=== PATIENT | female | born 1955 | race Caucasian/White ===

== ENCOUNTER → 2020-03-16 | Outpatient (CLI) | payer OTHER ==
--- NOTE | 2020-03-16 11:17 | Diagnostic Imaging Report ---
EXAM: Right Upper Quadrant Ultrasound INDICATION: ^[id number] ^[id number] ^UPPER ABDOMINAL PAIN COMPARISON: None. TECHNIQUE: Transverse and longitudinal images of the right upper abdomen were obtained. FINDINGS: Liver: Size: 17.9 cm in the right midclavicular line, increased Appearance: Increased echogenicity, smooth contour Mass: No focal masses Gallbladder: Stones/Sludge: None Wall: 0.2 cm Appearance: No wall thickening, pericholecystic fluid or hydrops. Sonographic Crisostomo's Sign: Negative Bile Ducts: Intrahepatic Ducts: No dilatation Extrahepatic Ducts: Common bile duct measures 0.5 cm, no dilatation Pancreas: Visualized portions of the pancreatic head, neck and proximal body are normal. Kidneys: Length: Right 9.9 cm Echogenicity: Normal Collecting System: No hydronephrosis Stone: None Cyst/Mass: None Vessels: Aorta: Visualized portions are normal Inferior Vena Cava: Visualized portions are normal Main Portal Vein: 1.0 cm, normal size with hepatopetal flow. Free Fluid: No ascites or pleural effusion IMPRESSION: Mild hepatomegaly with associated hepatic steatosis. Otherwise, unremarkable right upper quadrant ultrasound. Signed by: Dr. Nichole Gao M.D. on 03/16/2020 11:13 AM
== END ==
LOC: US 09:30
PROVIDERS: ATTEND Internal Medicine
DX: R10.10 Upper abdominal pain, unspecified (principal)
CPT/HCPCS: 76705

== ENCOUNTER 2024-04-15 13:50 | Emergency (ER) | payer OTHER ==
[~2024-04-15] VITALS: Ht 160 cm; Wt 98.0 kg
[~2024-04-15 13:50] MED LIST: AMLODIPINE BESY10 MG PO; BENICAR20 MG PO; RINVOQ ER15 MG
[2024-04-15 14:39] VITALS: PULSE 87; RESP 18; TEMP 98.1; O2SAT 96
== END 2024-04-15 16:32 | disposition home or self-care (01) ==
LOC: ER 14:03
DX: R79.1 Abnormal coagulation profile (principal); I10 Essential (primary) hypertension; M06.9 Rheumatoid arthritis, unspecified
CPT/HCPCS: 99283